=== PATIENT | female | born 1995 | race Caucasian/White ===

== ENCOUNTER 2019-01-06 07:26 | Outpatient (CLI) ==
--- NOTE | 2019-01-06 09:13 | US ---
EXAM: Thyroid ultrasound HISTORY: Hyperthyroidism. COMPARISON: None TECHNIQUE: Sonographic evaluation of the thyroid was performed with limited doppler. FINDINGS: Right thyroid measures 5.4 x 1.9 x 1.8 cm. There is heterogeneous echogenicity with symmetric mild i ncreased color Doppler flow. There is a small hypoechoic right thyroid nodule inferiorly measuring 0 .6 x 0.2 x 0.5 cm. The isthmus measures 0.4 cm in thickness. Left thyroid measures 5.4 x 1.5 x 1.7 cm. There is heterogeneous echogenicity and mild increased, bu t symmetric color Doppler flow. There is a single hypoechoic nodule measuring 0.5 x 0.7 cm. IMPRESSION: 1. Heterogeneous appearance of the thyroid with bilateral symmetric increased echogenicity may repre sent a infiltrative process versus inflammatory process. 2. Two hypoechoic sub-centimeter thyroid nodules are present. If further evaluation is clinically i ndicated, follow-up may be performed in 1 year.
== END 2019-01-06 07:27 | disposition home or self-care (01) ==
LOC: RAD 07:26
PROVIDERS: ATTEND Nurse Practitioner Family
DX: E05.90 Thyrotoxicosis, unspecified without thyrotoxic crisis or storm (principal)